=== PATIENT | female | born 1990 | race Caucasian/White ===

== ENCOUNTER → 2018-01-22 | Outpatient (CLI) | payer OTHER ==
[~2018-01-22] MED LIST: AMOCLA500 PO; CEPH500 PO; Cleocin HCl150 MG PO; IMIQUIMOD1 EACH TP; Imitrex100 MG PO; OXYACE5T PO; PRED20 PO; Phentermine HCl30 MG PO; Prednisone20 MG PO; RXHYDACE PO; SULTRIDS PO
== END ==
LOC: LAB SHORT 10:25 → LAB 10:25
DX: N90.89 Other specified noninflammatory disorders of vulva and perineum (principal)
CPT/HCPCS: 87529

== ENCOUNTER → 2020-11-09 | Outpatient (CLI) | payer OTHER ==
[2020-11-11 16:09] LABS: HPV 16 Negative (Negative); HPV 18 Negative (Negative); HPV OTHER HR TYPES Negative (Negative)
== END ==
LOC: LAB SRC 14:28
PROVIDERS: Nurse Practitioner Family
DX: Z00.00 Encounter for general adult medical examination without abnormal findings (principal)
CPT/HCPCS: 87624; G0123